=== PATIENT | male | born 1955 | race Caucasian/White ===

== ENCOUNTER → 2020-05-15 | Outpatient (REF) | payer MEDICARE, OTHER ==
[~2020-05-15] MED LIST: ALEV220T22 PO; AMLO1TAB24 PO
[2020-06-29 17:02] LABS: ALBUMIN 3.2 GM/DL (3.2-5.2); ALT/SGPT 40 U/L (12-78); BILIRUBIN,TOTAL 0.7 MG/DL (0.2-1.0); BLOOD UREA NITROGEN 6 MG/DL (7-18); CALCIUM LEVEL 9.2 MG/DL (8.8-10.2); CARBON DIOXIDE LEVEL 29 MEQ/L (21-32); CHLORIDE LEVEL 105 MEQ/L (98-107); CHOLESTEROL LEVEL 194 MG/DL (<200); CHOLESTEROL RISK RATIO 5.105 (<5); CREATININE FOR GFR 0.63 MG/DL (0.70-1.30); GLOMERULAR FILTRATION RATE > 60.0 (>49); GLUCOSE, FASTING 94 MG/DL (70-100); HDL CHOLESTEROL 38 MG/DL (>40); LDL CHOLESTEROL 133 MG/DL (<100); NON-HDL-C 156 MG/DL; POTASSIUM SERUM 4.4 MEQ/L (3.5-5.1); SODIUM LEVEL 136 MEQ/L (136-145); TOTAL PROTEIN 7.7 GM/DL (6.4-8.2); TRIGLYCERIDES LEVEL 113 MG/DL (<150)
== END ==
LOC: M SFHCCLAY 15:35
PROVIDERS: ATTEND Family Medicine
DX: R03.0 Elevated blood-pressure reading, without diagnosis of hypertension (principal); Z83.3 Family history of diabetes mellitus; Z13.220 Encounter for screening for lipoid disorders
CPT/HCPCS: 36415; 80053; 80061; 83036; G0463

== ENCOUNTER → 2020-05-22 | Outpatient (REF) | payer MEDICARE, OTHER ==
[2020-07-14 23:45] LABS: % LABILE ALKALINE PHOSPHATASE 61.6 %
== END ==
LOC: M SFHCCLAY 16:12
PROVIDERS: ATTEND Family Medicine
DX: R74.8 Abnormal levels of other serum enzymes (principal)

== ENCOUNTER → 2020-06-03 | Outpatient (REF) | payer MEDICARE, OTHER ==
[2020-06-03 22:45] LABS: % LABILE ALKALINE PHOSPHATASE 67.8 %
== END ==
LOC: M LABDRAWC 10:20
PROVIDERS: ATTEND Family Medicine
DX: R94.5 Abnormal results of liver function studies (principal)
CPT/HCPCS: 36415; 84078; G0463

== ENCOUNTER → 2020-07-03 | Outpatient (CLI) | payer MEDICARE, OTHER ==
[2020-07-03 12:31] LABS: HEMATOCRIT 44.2 % (42.0-52.0); HEMOGLOBIN 14.9 g/dl (13.5-17.5); MEAN CORPUSCULAR HEMOGLOBIN 36.2 pg (27.0-33.0); MEAN CORPUSCULAR HGB CONC 33.7 g/dl (32.0-36.5); MEAN CORPUSCULAR VOLUME 107.3 fl (80.0-96.0); PLATELET COUNT, AUTOMATED 150 10^3/uL (150-450); RED BLOOD COUNT 4.12 10^6/uL (4.30-6.10); WHITE BLOOD COUNT 7.8 10^3/uL (4.0-10.0)
[2020-07-03 12:34] LABS: BLOOD UREA NITROGEN 7 MG/DL (7-18); CALCIUM LEVEL 9.3 MG/DL (8.8-10.2); CARBON DIOXIDE LEVEL 26 MEQ/L (21-32); CHLORIDE LEVEL 107 MEQ/L (98-107); CREATININE FOR GFR 0.59 MG/DL (0.70-1.30); GLOMERULAR FILTRATION RATE > 60.0 (>49); GLUCOSE, FASTING 107 MG/DL (70-100); POTASSIUM SERUM 4.1 MEQ/L (3.5-5.1); SODIUM LEVEL 136 MEQ/L (136-145)
--- NOTE | 2020-07-11 13:41 | REP ---
CHEST X-RAY: 2-VIEWS HISTORY: Preop clearance; Z01.818. COMPARISON: No comparison chest x-ray. FINDINGS: There is minimal linear fibrosis in the left lung base. Lungs are otherwise well-inflated and clear. Heart is not enlarged. The aorta is calcific and slightly tortuous. There are mild degenerative changes in the thoracic spine. Pulmonary vasculature is not increased. IMPRESSION: No acute disease. MTDD
== END ==
LOC: M CLY 08:13
PROVIDERS: ATTEND Family Medicine
DX: Z01.818 Encounter for other preprocedural examination (principal); L72.3 Sebaceous cyst

== ENCOUNTER → 2020-07-26 | Outpatient (CLI) | payer MEDICARE, OTHER | LOC: M LABSMTC 08:57 | PROVIDERS: ATTEND Anesthesiology | DX: Z01.812 Encounter for preprocedural laboratory examination (principal); Z20.828 Contact with and (suspected) exposure to other viral communicable diseases | CPT/HCPCS: C9803; U0003 ==

== ENCOUNTER 2020-07-31 05:52 | Day surgery (SDC) | payer MEDICARE ==
[~2020-07-31] VITALS: Ht 170.2 cm; Wt 91.2 kg
[2020-07-31] MEDS ORDERED: LR 1,000 ML IV ONE (06:00)
[2020-07-31] MEDS ORDERED: ceFAZolin SOD 1 GM in D5W MINI-BAG PLUS 50 ML IV ONE (06:00)
[2020-07-31] MEDS ORDERED: dexameTHASONE 4 MG/ML 1ML VIAL (J1100 PER 1MG) As Ordered ONE (07:19)
[2020-07-31] MEDS ORDERED: propofoL 200 MG/20 ML VIAL As Ordered ONE (07:19)
[2020-07-31] MEDS ORDERED: MIDAZOLAM INJ 2MG/2ML VIAL (J2250 PER 1MG) As Ordered ONE (07:19)
[2020-07-31] MEDS ORDERED: KETOROLAC 60MG 2ML VIAL As Ordered ONE (07:19)
[2020-07-31] MEDS ORDERED: fentaNYL 100 MCG/2 ML INJECTION (J3010) As Ordered ONE (07:19)
[2020-07-31] MEDS ORDERED: LIDOCAINE 2% 100MG/5ML SDV (FOR ANES.) As Ordered ONE (07:19)
[2020-07-31] MEDS ORDERED: ONDANSETRON 4MG/2ML VIAL As Ordered ONE (07:19)
[2020-07-31] MEDS ORDERED: POVIDONE-IODINE 5% OPHTH PREP SOL 30ML As Ordered ONE (07:20)
[2020-07-31] MEDS ORDERED: LIDOCAINE 2% W/EPINEPHRINE 20ML VIAL **PRES FREE As Ordered ONE (07:48)
[2020-07-31] MEDS ORDERED: POLYSPORIN OPHTH OINT 3.5 GM As Ordered ONE (07:48)
--- NOTE | 2020-07-31 09:19 | POST-OPPD ---
Postoperative Procedure Note Date Of Procedure: Jul 31, 2020 PREOPERATIVE DIAGNOSIS: Right inferior eyelid malignant lesion, left forehead mass POSTOPERATIVE DIAGNOSIS: same FINDINGS: Right lower eyelid lesion 1.1x0.9cm, Left forehead mass round 2cm PROCEDURE: Excision left forehead mass and right lower eyelid malignant lesion. SURGEON: Dr Taylor ANESTHESIA: General SPECIMENS: Right lower eyelid lesion FS, suture at 12 O'clock, Left forehead mass ESTIMATED BLOOD LOSS: 2 cc REPLACED: none DRAINS: none COMPLICATIONS: none POSTOPERATIVE CONDITION: Stable [id number] SHELBY TAYLOR DO Jul 31, 2020 09:19
[2020-07-31] MEDS ORDERED: LR 1,000 ML IV SCH (10:00)
[2020-07-31] MEDS ORDERED: HYDROMORPHONE HCL 0.5 MG/ 0.5 ML SYRINGE (J1170 PER 1) IV PRN (10:00)
[2020-07-31] MEDS ORDERED: oxyCODONE 5MG TAB PO PRN (10:00)
[2020-07-31] MEDS ORDERED: fentaNYL 100 MCG/2 ML INJECTION (J3010) IV PRN (10:00)
[2020-07-31] MEDS ORDERED: ONDANSETRON 4MG/2ML VIAL IV PRN (10:00)
[2020-07-31 11:35] VITALS: BP 157/75
--- NOTE | 2020-08-04 08:19 | RO ---
DATE OF OPERATION: 07/31/2020 PREOPERATIVE DIAGNOSIS: Right inferior eyelid malignant lesion, left forehead mass. POSTOPERATIVE DIAGNOSIS: Right inferior eyelid malignant lesion, left forehead mass. PROCEDURE: Excision, left forehead mass and the right lower eyelid malignant lesion. ATTENDING PHYSICIAN: Dr. Sampson ANESTHESIA: General. SPECIMEN: Right lower eyelid lesion, frozen section, suture margin 12 o'clock. Similar forehead mass. BLOOD LOSS: 2 mL. REPLACEMENT: None. DRAINS: None. COMPLICATIONS: None. PROCEDURE DESCRIPTION: This is a 65-year-old male who presented to our office complaining of a slow-growing mass on his left forehead. It did drain periodically, and he had previously been diagnosed with cysts, and this was a similar mass. Also he has a slow-growing lesion, which is a tate color with verrucous formation medially on his right lower eyelid, more laterally, which is extending to the ciliary border and touching the cornea. Patient wishes to have both of those lesions removed. Risks, benefits, and alternatives were discussed with the patient in detail, and he ready to proceed. The day of surgery, he was marked in the holding unit. Informed consent confirmed. He was brought into the operating room and placed in supine position. Preoperative antibiotics were given. Sequentials placed on the lower calves. General anesthesia was induced. He was prepped and draped in the usual sterile fashion. We started the procedure by measuring the lesion on the right lower eyelid. It is 1.1 x 0.9 cm. It was extending to the edge of the eyelid from 11 to 2 o'clock, and also left forehead mass with a round lesion, 2 x 2 cm. We started with infiltrating the area with 2% lidocaine with epinephrine in both areas. After the local was taking effect, we started our procedure on the right lower eyelid. The excision of the lesion was done with 2 mm margins, and it was excised completely from the edge of the eyelid down in the hexagonal formation. The lesion was marked at 12 o'clock sutures, superior portion, and the ciliary border was marked with a 12 o'clock suture and sent for frozen section. Hemostasis was obtained using electrocautery. The tarsal plate was intact. A small portion of the tarsal plate was taken superiorly with the specimen. Then we turned our attention to the mass while we waited for the frozen section. A horizontal incision was carried out, and the cyst was identified with a thick wall and was carefully dissected off the adhesions, and it was removed in all entirety. The wound bed was irrigated with normal saline. Hemostasis obtained. Excess skin was measured and tailored off and resected. Closure was done in layers, the muscle layer with 4-0 Vicryl sutures, the skin with interrupted 5-0 Monocryl sutures, and dermis with 5-0 plain interrupted fascial sutures. After frozen came back with clear margins, we designed a local flap to reapproximate the lower eyelid. The edge of the lid was approximated primarily with interrupted 6-0 nylon sutures with a buried knot, and then the anterior portion of the eyelid with a small advancement flap to alleviate the deficit. Then it was sutured in place with interrupted 5-0 and 6-0 plain gut sutures. Bacitracin ointment was applied. Before we started working on the eyelid, we used ophthalmic bacitracin and corneal protector to protect the right eye. After closure was completed, patient was extubated and transferred to the recovery room in stable condition. TIMI
== END 2020-07-31 11:35 | disposition home or self-care (01) ==
LOC: M SDC 05:52
PROVIDERS: ATTEND Plastic Surgery Surgery of the Hand
DX: C44.1122 Basal cell carcinoma of skin of right lower eyelid, including canthus (principal); L72.0 Epidermal cyst; I10 Essential (primary) hypertension; Z79.899 Other long term (current) drug therapy; F17.218 Nicotine dependence, cigarettes, with other nicotine-induced disorders
CPT/HCPCS: 11442; 14060; 88305; 88331; J0690; J1100; J1885; J2250; J2405; J3010

== ENCOUNTER → 2021-01-15 | Outpatient (CLI) | payer MEDICARE ==
--- NOTE | 2021-01-15 14:52 | REP ---
INDICATION: RT LEG PAIN SWELLING ? DVT COMPARISON: None. TECHNIQUE: Real time compression and duplex Doppler interrogation of the right lower extremity deep venous system is performed. FINDINGS: The right common femoral, superficial femoral and popliteal veins are fully compressible with transducer pressure and demonstrate normal spontaneous and phasic flow, without evidence of deep venous thrombosis. IMPRESSION: No evidence of deep venous thrombosis of the right lower extremity femoral popliteal venous system. <Electronically signed by Du Blake > 01/15/21 [id number]
== END ==
LOC: M RAD 13:23
PROVIDERS: ATTEND Family Medicine
DX: M79.89 Other specified soft tissue disorders (principal)

== ENCOUNTER → 2021-05-20 | Outpatient (REF) | payer MEDICARE ==
[2021-05-20 16:08] LABS: BASO # 0.1 10^3/uL (0.0-0.2); BASO % 1.7 % (0.0-1.0); EOS # 0.5 10^3/uL (0.0-0.5); HEMOGLOBIN 15.5 g/dl (13.5-17.5); LYMPH # 2.7 10^3/uL (1.5-5.0); LYMPH % 35.3 % (24.0-44.0); MEAN CORPUSCULAR HEMOGLOBIN 36.5 pg (27.0-33.0); MEAN CORPUSCULAR HGB CONC 33.7 g/dl (32.0-36.5); MEAN CORPUSCULAR VOLUME 108.2 fl (80.0-96.0); MONO # 0.9 10^3/uL (0.0-0.8); MONO % 11.3 % (2.0-8.0); NEUTROPHILS # 3.4 10^3/uL (1.5-8.5); NEUTROPHILS % 44.3 % (36.0-66.0); PLATELET COUNT, AUTOMATED 169 10^3/uL (150-450); RED BLOOD COUNT 4.25 10^6/uL (4.30-6.10); WHITE BLOOD COUNT 7.6 10^3/uL (4.0-10.0)
[2021-05-20 16:26] LABS: ALT/SGPT 48 U/L (12-78); BILIRUBIN,TOTAL 0.7 MG/DL (0.2-1.0); BLOOD UREA NITROGEN 7 MG/DL (7-18); CALCIUM LEVEL 9.6 MG/DL (8.8-10.2); CARBON DIOXIDE LEVEL 29 MEQ/L (21-32); CHLORIDE LEVEL 103 MEQ/L (98-107); CREATININE FOR GFR 0.49 MG/DL (0.70-1.30); GLOMERULAR FILTRATION RATE > 60.0 (>49); GLUCOSE, FASTING 117 MG/DL (70-100); POTASSIUM SERUM 4.2 MEQ/L (3.5-5.1); SODIUM LEVEL 137 MEQ/L (136-145)
[2021-05-20 16:27] LABS: ALBUMIN 3.1 GM/DL (3.2-5.2); CHOLESTEROL LEVEL 210 MG/DL (<200); CHOLESTEROL RISK RATIO 4.565 (<5); HDL CHOLESTEROL 46 MG/DL (>40); LDL CHOLESTEROL 137 MG/DL (<100); NON-HDL-C 164 MG/DL; TOTAL 25(OH) VITAMIN D 13.2 NG/ML (30.0-100.0); TOTAL PROTEIN 7.2 GM/DL (6.4-8.2); TRIGLYCERIDES LEVEL 134 MG/DL (<150); VITAMIN B12 LEVEL 623 PG/ML
[2021-05-20 16:47] LABS: APPEARANCE, URINE CLEAR (CLEAR); BACTERIA, URINE AUTO NEGATIVE (NEGATIVE); BILIRUBIN, URINE AUTO NEGATIVE (NEGATIVE); BLOOD, URINE BLOOD NEGATIVE (NEGATIVE); COLOR, URINE AMBER (YELLOW); GLUCOSE, URINE (UA) AUTO NEGATIVE (NEGATIVE); KETONE, URINE AUTO NEGATIVE (NEGATIVE); LEUKOCYTE ESTERASE, URINE AUTO NEGATIVE (NEGATIVE); MUCUS, URINE SMALL (NEGATIVE); NITRITE, URINE AUTO NEGATIVE (NEGATIVE); PROTEIN, URINE AUTO NEGATIVE (NEGATIVE); RBC, URINE AUTO 0 /HPF (0-3); SPECIFIC GRAVITY URINE AUTO 1.016 (1.002-1.035); SQUAMOUS EPITHELIAL CELL UR AU 1 /HPF (0-6); WBC, URINE AUTO 0 /HPF (0-3)
[2021-05-23 20:07] LABS: Lyme Disease IgG Ab 18 kDa Ban Absent (.); Lyme Disease IgG Ab 23 kDa Ban Absent (.); Lyme Disease IgG Ab 28 kDa Ban Absent (.); Lyme Disease IgG Ab 30 kDa Ban Absent (.); Lyme Disease IgG Ab 39 kDa Ban Absent (.); Lyme Disease IgG Ab 41 kDa Ban Absent (.); Lyme Disease IgG Ab 45 kDa Ban Absent (.); Lyme Disease IgG Ab 58 kDa Ban Present (.); Lyme Disease IgG Ab 66 kDa Ban Absent (.); Lyme Disease IgG Ab 93 kDa Ban Absent (.); Lyme Disease IgG West Blot Int Negative (.); Lyme Disease IgG/IgM Antibodie <0.91 ISR (0.00-0.90); Lyme Disease IgM Ab 23 kDa Ban Absent (.); Lyme Disease IgM Ab 39 kDa Ban Present (.); Lyme Disease IgM Ab 41 kDa Ban Present (.); Lyme Disease IgM Ab Quantitati 0.94 index (0.00-0.79); Lyme Disease IgM West Blot Int Positive (.)
== END ==
LOC: M SFHCCAPE 07:34
PROVIDERS: ATTEND Physician Assistant
DX: I11.9 Hypertensive heart disease without heart failure (principal); R20.2 Paresthesia of skin; M25.50 Pain in unspecified joint; Z79.899 Other long term (current) drug therapy

== ENCOUNTER → 2021-06-24 | Outpatient (CLI) | payer MEDICARE ==
--- NOTE | 2021-06-24 08:26 | REP ---
INDICATION: SCREENING FOR LUNG CANCER- PT HAS US FIRST. COMPARISON: None. TECHNIQUE: Axial noncontrast images from the thoracic inlet to the upper abdomen using low-dose lung screening technique (LDCT). As per the protocol only lung window images were sent to the read station for interpretation FINDINGS: There is evidence of biapical pleuroparenchymal scarring. There is a 5 mm size nodule in the right upper lobe. Asymmetric and curvilinear densities are seen 1 in the right middle lobe and 1 in the inferior lingula. Grossly, the mediastinum and pulmonary killian are unremarkable. Grossly, the imaged upper abdomen and imaged osseous structures are unremarkable. IMPRESSION: 1. There is a 5 mm size nodule in the right upper lobe. According to the revised Fleischner society criteria this represents a category 2 lesion for which a 1 year follow-up CT is recommended. 2. Chronic lung field changes as described above. The lingular and right middle lobe densities likely represent fibrotic and/or subsegmental atelectatic changes. <Electronically signed by Primitivo Hu > 06/24/21 [id number]
--- NOTE | 2021-06-24 08:29 | REP ---
INDICATION: ALCOHOL ABUSE, ELEVATED ALKALINE PHOSPHATASE LEVELS. COMPARISON: None. TECHNIQUE: Real-time sonographic evaluation of ABDOMEN performed. FINDINGS: The gallbladder demonstrates no evidence of intraluminal sludge or calculi, wall thickening or pericholecystic fluid. There is no intrahepatic or extrahepatic biliary dilatation, common bile duct measures 6 mm in maximum diameter. The liver is enlarged with a length of 23.5 cm. Echotexture is diffusely heterogeneous with no gross mass. Main portal vein measures 14 mm which is slightly dilated. Pancreas is not visualized due to overlying bowel gas. Spleen is enlarged, 13.3 x 13.1 x 7.8 cm, splenic index 1359. There is no evidence of hydronephrosis, cyst, mass, or calculus in either kidney. The right kidney measures 13.7 x 6.0 x 4.4 cm. Left renal dimensions are 12.0 x 6.4 x 5.0 cm. The abdominal aorta is normal in caliber with no aneurysm. There is mild atherosclerotic plaquing. No free fluid is seen. IMPRESSION: Hepatomegaly with heterogeneous echotexture. No gross liver mass. Slightly dilated main portal vein may indicate some degree of portal hypertension. Splenomegaly. <Electronically signed by Du Blake > 06/24/21 [id number]
== END ==
LOC: M RAD 07:11
PROVIDERS: ATTEND Physician Assistant
DX: Z12.2 Encounter for screening for malignant neoplasm of respiratory organs (principal); F10.10 Alcohol abuse, uncomplicated; R74.8 Abnormal levels of other serum enzymes; R91.8 Other nonspecific abnormal finding of lung field; R16.2 Hepatomegaly with splenomegaly, not elsewhere classified; F17.210 Nicotine dependence, cigarettes, uncomplicated

== ENCOUNTER → 2021-06-30 | Outpatient (REF) | payer MEDICARE ==
[2021-06-30 16:46] LABS: ALBUMIN 2.8 GM/DL (3.2-5.2); ALT/SGPT 48 U/L (12-78); BILIRUBIN,TOTAL 0.9 MG/DL (0.2-1.0); BLOOD UREA NITROGEN 8 MG/DL (7-18); CALCIUM LEVEL 9.1 MG/DL (8.8-10.2); CARBON DIOXIDE LEVEL 28 MEQ/L (21-32); CHLORIDE LEVEL 95 MEQ/L (98-107); CREATININE FOR GFR 0.49 MG/DL (0.70-1.30); FREE T4 1.29 NG/DL (0.76-1.46); GLOMERULAR FILTRATION RATE > 60.0 (>49); GLUCOSE, FASTING 104 MG/DL (70-100); POTASSIUM SERUM 3.8 MEQ/L (3.5-5.1); SODIUM LEVEL 130 MEQ/L (136-145); TOTAL 25(OH) VITAMIN D 18.6 NG/ML (30.0-100.0); TOTAL PROTEIN 6.9 GM/DL (6.4-8.2)
[2021-06-30 16:48] LABS: BASO # 0.1 10^3/uL (0.0-0.2); BASO % 1.5 % (0.0-1.0); EOS # 0.3 10^3/uL (0.0-0.5); EOS % 4.9 % (0.0-3.0); HEMATOCRIT 40.4 % (42.0-52.0); HEMOGLOBIN 14.4 g/dl (13.5-17.5); LYMPH # 1.9 10^3/uL (1.5-5.0); LYMPH % 28.1 % (24.0-44.0); MEAN CORPUSCULAR HEMOGLOBIN 36.9 pg (27.0-33.0); MEAN CORPUSCULAR HGB CONC 35.6 g/dl (32.0-36.5); MEAN CORPUSCULAR VOLUME 103.6 fl (80.0-96.0); MONO # 0.6 10^3/uL (0.0-0.8); MONO % 9.3 % (2.0-8.0); NEUTROPHILS # 3.7 10^3/uL (1.5-8.5); NEUTROPHILS % 55.6 % (36.0-66.0); PLATELET COUNT, AUTOMATED 174 10^3/uL (150-450); WHITE BLOOD COUNT 6.7 10^3/uL (4.0-10.0)
== END ==
LOC: M SFHCCAPE 07:23
PROVIDERS: ATTEND Physician Assistant
DX: I11.9 Hypertensive heart disease without heart failure (principal); R74.8 Abnormal levels of other serum enzymes; Z79.899 Other long term (current) drug therapy

== ENCOUNTER → 2021-08-18 | Outpatient (REF) | payer MEDICARE ==
[2021-08-18 16:18] LABS: BASO # 0.1 10^3/uL (0.0-0.2); BASO % 1.2 % (0.0-1.0); EOS # 0.5 10^3/uL (0.0-0.5); EOS % 6.2 % (0.0-3.0); HEMATOCRIT 34.4 % (42.0-52.0); HEMOGLOBIN 12.2 g/dl (13.5-17.5); LYMPH # 1.9 10^3/uL (1.5-5.0); LYMPH % 24.5 % (24.0-44.0); MEAN CORPUSCULAR HEMOGLOBIN 37.7 pg (27.0-33.0); MEAN CORPUSCULAR HGB CONC 35.5 g/dl (32.0-36.5); MEAN CORPUSCULAR VOLUME 106.2 fl (80.0-96.0); MONO # 0.8 10^3/uL (0.0-0.8); MONO % 10.1 % (2.0-8.0); NEUTROPHILS # 4.3 10^3/uL (1.5-8.5); NEUTROPHILS % 57.6 % (36.0-66.0); PLATELET COUNT, AUTOMATED 189 10^3/uL (150-450); RED BLOOD COUNT 3.24 10^6/uL (4.30-6.10); WHITE BLOOD COUNT 7.5 10^3/uL (4.0-10.0)
[2021-08-18 16:48] LABS: ALT/SGPT 39 U/L (12-78); BILIRUBIN,TOTAL 1.1 MG/DL (0.2-1.0); BLOOD UREA NITROGEN 10 MG/DL (7-18); CALCIUM LEVEL 9.2 MG/DL (8.8-10.2); CARBON DIOXIDE LEVEL 27 MEQ/L (21-32); CHLORIDE LEVEL 97 MEQ/L (98-107); CREATININE FOR GFR 0.63 MG/DL (0.70-1.30); FREE T4 1.33 NG/DL (0.76-1.46); GLOMERULAR FILTRATION RATE > 60.0 (>49); GLUCOSE, FASTING 115 MG/DL (70-100); POTASSIUM SERUM 4.2 MEQ/L (3.5-5.1); RHEUMATOID FACTOR QUANT < 10.0 IU/ML (<15.0); SODIUM LEVEL 131 MEQ/L (136-145); TOTAL PROTEIN 6.9 GM/DL (6.4-8.2)
[2021-08-21 10:47] LABS: ALBUMIN 3.53 GM/DL (3.29-5.55); ALBUMIN % 51.1 % (55.8-66.1); ALPHA-1-GLOBULIN % 4.2 % (2.9-4.9); ALPHA-1-GLOBULINS 0.29 GM/DL (0.17-0.41); ALPHA-2-GLOBULINS 0.67 GM/DL (0.42-0.99); ALPHA-2-GLOBULINS % 9.7 % (7.1-11.8); BETA-1-GLOBULINS 0.39 GM/DL (0.28-0.60); BETA-1-GLOBULINS % 5.6 % (4.7-7.2); BETA-2-GLOBULINS 0.59 GM/DL (0.19-0.55); BETA-2-GLOBULINS % 8.5 % (3.2-6.5); GAMMA GLOBULIN % 20.9 % (11.1-18.8); GAMMA GLOBULINS 1.44 GM/DL (0.65-1.58)
[2021-08-27 00:08] LABS: ANA (HEP2) Positive (.); CYCLIC CITRULLINATED PEPTIDE 22 units (0-19); VITAMIN B1 LEVEL WHOLE BLOOD 79.3 nmol/L (66.5-200.0); VITAMIN B6,PYRIDOXAL PHOSPHATE 7.1 ug/L (5.3-46.7)
== END ==
LOC: M SFHCCAPE 08:17
PROVIDERS: ATTEND Physician Assistant
DX: E03.9 Hypothyroidism, unspecified (principal); E55.9 Vitamin D deficiency, unspecified; R20.2 Paresthesia of skin; M25.50 Pain in unspecified joint; Z12.5 Encounter for screening for malignant neoplasm of prostate
CPT/HCPCS: 36415; 80053; 82306; 84165; 84166; 84207; 84425; 84439; 84443; 85025; 86038; 86200; 86335; 86431; 86780; G0103; G0463

== ENCOUNTER → 2021-08-20 | Outpatient (REF) | payer MEDICARE ==
[2021-08-26 23:09] LABS: VITAMIN E(ALPHA TOCOPHEROL) 4.3 mg/L (9.0-29.0); VITAMIN E(GAMMA TOCOPHEROL) 1.8 mg/L (0.5-4.9)
== END ==
LOC: M SFHCCAPE 07:26
PROVIDERS: ATTEND Physician Assistant
DX: R20.2 Paresthesia of skin (principal); M25.50 Pain in unspecified joint

== ENCOUNTER → 2021-08-20 | Outpatient (CLI) | payer MEDICARE | LOC: M CLY 13:07 | PROVIDERS: ATTEND Physician Assistant | DX: M43.16 Spondylolisthesis, lumbar region (principal); M51.36 Other intervertebral disc degeneration, lumbar region; M16.11 Unilateral primary osteoarthritis, right hip; R20.2 Paresthesia of skin; M54.42 Lumbago with sciatica, left side; M54.41 Lumbago with sciatica, right side; G89.29 Other chronic pain ==

== ENCOUNTER → 2021-11-17 | Outpatient (REF) | payer MEDICARE ==
[2021-11-17 16:25] LABS: BASO # 0.1 10^3/uL (0.0-0.2); BASO % 1.5 % (0.0-1.0); EOS # 0.4 10^3/uL (0.0-0.5); EOS % 4.9 % (0.0-3.0); HEMATOCRIT 36.7 % (42.0-52.0); HEMOGLOBIN 12.5 g/dl (13.5-17.5); LYMPH # 1.7 10^3/uL (1.5-5.0); LYMPH % 23.8 % (24.0-44.0); MEAN CORPUSCULAR HEMOGLOBIN 36.1 pg (27.0-33.0); MEAN CORPUSCULAR HGB CONC 34.1 g/dl (32.0-36.5); MEAN CORPUSCULAR VOLUME 106.1 fl (80.0-96.0); MONO # 0.8 10^3/uL (0.0-0.8); MONO % 11.4 % (2.0-8.0); NEUTROPHILS # 4.2 10^3/uL (1.5-8.5); NEUTROPHILS % 58.1 % (36.0-66.0); PLATELET COUNT, AUTOMATED 224 10^3/uL (150-450); RED BLOOD COUNT 3.46 10^6/uL (4.30-6.10); WHITE BLOOD COUNT 7.3 10^3/uL (4.0-10.0)
[2021-11-17 16:48] LABS: ALBUMIN 3.2 GM/DL (3.2-5.2); ALT/SGPT 34 U/L (12-78); BILIRUBIN,TOTAL 0.8 MG/DL (0.2-1.0); BLOOD UREA NITROGEN 13 MG/DL (7-18); C REACTIVE PROTEIN QUANTITATIV 1.57 MG/DL (0.00-0.30); CALCIUM LEVEL 9.5 MG/DL (8.8-10.2); CARBON DIOXIDE LEVEL 24 MEQ/L (21-32); CHLORIDE LEVEL 102 MEQ/L (98-107); CREATININE FOR GFR 0.64 MG/DL (0.70-1.30); GLOMERULAR FILTRATION RATE > 60.0 (>49); GLUCOSE, FASTING 90 MG/DL (70-100); POTASSIUM SERUM 4.1 MEQ/L (3.5-5.1); RHEUMATOID FACTOR QUANT < 10.0 IU/ML (<15.0); SODIUM LEVEL 133 MEQ/L (136-145); TOTAL PROTEIN 6.9 GM/DL (6.4-8.2)
[2021-11-17 17:56] LABS: ERYTHROCYTE SEDIMENTATION RATE 49 mm/hr (0-20)
[2021-11-20 23:08] LABS: ANA (HEP2) Positive (.); CYCLIC CITRULLINATED PEPTIDE 26 units (0-19)
== END ==
LOC: M SFHCCAPE 08:01
PROVIDERS: ATTEND Physician Assistant
DX: I11.9 Hypertensive heart disease without heart failure (principal); M25.50 Pain in unspecified joint; D75.89 Other specified diseases of blood and blood-forming organs

== ENCOUNTER → 2021-12-09 | Outpatient (CLI) | payer MEDICARE | LOC: M RAD 14:12 | PROVIDERS: ATTEND Physician Assistant | DX: I70.201 Unspecified atherosclerosis of native arteries of extremities, right leg (principal); M54.42 Lumbago with sciatica, left side; Z79.899 Other long term (current) drug therapy ==

== ENCOUNTER → 2022-04-20 | Outpatient (REF) | payer MEDICARE ==
[2022-04-20 16:38] LABS: BASO # 0.1 10^3/uL (0.0-0.2); BASO % 1.4 % (0.0-1.0); EOS # 0.3 10^3/uL (0.0-0.5); EOS % 4.6 % (0.0-3.0); HEMATOCRIT 37.8 % (42.0-52.0); HEMOGLOBIN 13.2 g/dl (13.5-17.5); LYMPH # 1.8 10^3/uL (1.5-5.0); LYMPH % 31.1 % (24.0-44.0); MEAN CORPUSCULAR HEMOGLOBIN 36.5 pg (27.0-33.0); MEAN CORPUSCULAR HGB CONC 34.9 g/dl (32.0-36.5); MEAN CORPUSCULAR VOLUME 104.4 fl (80.0-96.0); MONO # 0.6 10^3/uL (0.0-0.8); MONO % 10.1 % (2.0-8.0); NEUTROPHILS % 52.4 % (36.0-66.0); PLATELET COUNT, AUTOMATED 169 10^3/uL (150-450); RED BLOOD COUNT 3.62 10^6/uL (4.30-6.10); WHITE BLOOD COUNT 5.7 10^3/uL (4.0-10.0)
[2022-04-20 19:45] LABS: ALBUMIN 3.1 GM/DL (3.2-5.2); ALT/SGPT 44 U/L (12-78); BILIRUBIN,TOTAL 0.9 MG/DL (0.2-1.0); BLOOD UREA NITROGEN 7 MG/DL (7-18); CALCIUM LEVEL 9.2 MG/DL (8.8-10.2); CARBON DIOXIDE LEVEL 26 MEQ/L (21-32); CHLORIDE LEVEL 99 MEQ/L (98-107); CHOLESTEROL LEVEL 146 MG/DL (<200); CHOLESTEROL RISK RATIO 2.703 (<5); CREATININE FOR GFR 0.65 MG/DL (0.70-1.30); FREE T4 1.35 NG/DL (0.76-1.46); GLOMERULAR FILTRATION RATE > 60.0 (>49); GLUCOSE, FASTING 107 MG/DL (70-100); HDL CHOLESTEROL 54 MG/DL (>40); LDL CHOLESTEROL 75 MG/DL (<100); NON-HDL-C 92 MG/DL; POTASSIUM SERUM 4.2 MEQ/L (3.5-5.1); SODIUM LEVEL 130 MEQ/L (136-145); TOTAL PROTEIN 6.9 GM/DL (6.4-8.2); TRIGLYCERIDES LEVEL 85 MG/DL (<150)
[2022-04-20 20:11] LABS: TOTAL 25(OH) VITAMIN D 56.9 NG/ML (30.0-100.0)
[2022-04-22 09:42] LABS: ALBUMIN % 53.2 % (55.8-66.1); ALPHA-1-GLOBULIN % 3.9 % (2.9-4.9); ALPHA-2-GLOBULINS % 9.9 % (7.1-11.8)
[2022-04-22 09:43] LABS: ALBUMIN 3.67 GM/DL (3.29-5.55); ALPHA-1-GLOBULINS 0.27 GM/DL (0.17-0.41); ALPHA-2-GLOBULINS 0.68 GM/DL (0.42-0.99); BETA-1-GLOBULINS % 5.8 % (4.7-7.2); BETA-2-GLOBULINS 0.54 GM/DL (0.19-0.55); BETA-2-GLOBULINS % 7.8 % (3.2-6.5); GAMMA GLOBULIN % 19.4 % (11.1-18.8); GAMMA GLOBULINS 1.34 GM/DL (0.65-1.58)
== END ==
LOC: M SFHCCAPE 07:17
PROVIDERS: ATTEND Physician Assistant
DX: R77.8 Other specified abnormalities of plasma proteins (principal); E55.9 Vitamin D deficiency, unspecified; E03.9 Hypothyroidism, unspecified; E56.0 Deficiency of vitamin E

== ENCOUNTER → 2022-04-21 | Outpatient (REF) | payer MEDICARE ==
[2022-04-21 16:20] LABS: C REACTIVE PROTEIN QUANTITATIV 0.58 MG/DL (0.00-0.30); RHEUMATOID FACTOR QUANT < 10.0 IU/ML (<15.0)
[2022-04-24 01:07] LABS: ANA (HEP2) Negative (.); CYCLIC CITRULLINATED PEPTIDE 27 units (0-19)
[2022-04-30 17:11] LABS: VITAMIN E(GAMMA TOCOPHEROL) 1.5 mg/L (0.5-4.9)
== END ==
LOC: M SFHCCAPE 10:43
PROVIDERS: ATTEND Physician Assistant
DX: M25.50 Pain in unspecified joint (principal)

== ENCOUNTER → 2022-07-08 | Outpatient (CLI) | payer MEDICARE | LOC: M RAD 08:22 | PROVIDERS: ATTEND Physician Assistant | DX: Z12.2 Encounter for screening for malignant neoplasm of respiratory organs (principal); F17.210 Nicotine dependence, cigarettes, uncomplicated; R91.1 Solitary pulmonary nodule ==

== ENCOUNTER → 2022-12-16 | Outpatient (REF) | payer MEDICARE ==
[2022-12-16 18:08] LABS: BASO # 0.1 10^3/uL (0.0-0.2); BASO % 1.6 % (0.0-1.0); EOS # 0.6 10^3/uL (0.0-0.5); EOS % 8.2 % (0.0-3.0); HEMATOCRIT 38.6 % (42.0-52.0); HEMOGLOBIN 12.9 g/dl (13.5-17.5); LYMPH % 28.5 % (24.0-44.0); MEAN CORPUSCULAR HEMOGLOBIN 36.1 pg (27.0-33.0); MEAN CORPUSCULAR HGB CONC 33.4 g/dl (32.0-36.5); MEAN CORPUSCULAR VOLUME 108.1 fl (80.0-96.0); MONO # 0.7 10^3/uL (0.0-0.8); MONO % 10.5 % (2.0-8.0); NEUTROPHILS # 3.6 10^3/uL (1.5-8.5); NEUTROPHILS % 50.8 % (36.0-66.0); PLATELET COUNT, AUTOMATED 194 10^3/uL (150-450); RED BLOOD COUNT 3.57 10^6/uL (4.30-6.10); WHITE BLOOD COUNT 7.1 10^3/uL (4.0-10.0)
[2022-12-16 18:41] LABS: ALBUMIN 3.2 G/DL (3.2-5.2); ALKALINE PHOSPHATASE 117 U/L (46-116); ALT/SGPT 26 U/L (7.0-40); AST/SGOT 31 U/L (<34); BILIRUBIN,TOTAL 0.7 MG/DL (0.3-1.2); BLOOD UREA NITROGEN 12 MG/DL (9-23); CALCIUM LEVEL 9.7 MG/DL (8.3-10.6); CARBON DIOXIDE LEVEL 27 MMOL/L (20-31); CHLORIDE LEVEL 102 MMOL/L (98-107); CHOLESTEROL LEVEL 167 MG/DL (<200); CHOLESTEROL RISK RATIO 3.47 (<5); CREATININE FOR GFR 0.64 MG/DL (0.70-1.30); GLOMERULAR FILTRATION RATE > 60.0 (>49); GLUCOSE, FASTING 107 MG/DL (74-106); LDL CHOLESTEROL 102.4 MG/DL (<100); POTASSIUM SERUM 4.1 MMOL/L (3.5-5.1); SODIUM LEVEL 135 MMOL/L (136-145); THYROID STIMULATING HORMONE 3.543 uIU/ML (0.55-4.78); TOTAL PROTEIN 6.5 G/DL (5.7-8.2); TRIGLYCERIDES LEVEL 83 MG/DL (<150)
[2022-12-16 18:42] LABS: FOLATE 10.8 NG/ML (>5.4); TOTAL 25(OH) VITAMIN D 75.7 NG/ML (20.0-100.0)
[2022-12-16 18:43] LABS: VITAMIN B12 LEVEL 230 PG/ML (211-911)
[2022-12-28 09:08] LABS: HOMOCYST(E)INE SERUM 19.3 umol/L (0.0-17.2); Methylmalonic Acid 950 nmol/L (0-378); VITAMIN E(ALPHA TOCOPHEROL) 6.3 mg/L (9.0-29.0); VITAMIN E(GAMMA TOCOPHEROL) 1.2 mg/L (0.5-4.9)
== END ==
LOC: M SFHCCAPE 07:10
PROVIDERS: ATTEND Physician Assistant
DX: I11.9 Hypertensive heart disease without heart failure (principal); E03.9 Hypothyroidism, unspecified; E55.9 Vitamin D deficiency, unspecified; M48.062 Spinal stenosis, lumbar region with neurogenic claudication; D75.89 Other specified diseases of blood and blood-forming organs; I73.9 Peripheral vascular disease, unspecified; E56.0 Deficiency of vitamin E; Z79.899 Other long term (current) drug therapy

== ENCOUNTER → 2023-03-31 | Outpatient (REF) | payer MEDICARE ==
[2023-03-31 18:24] LABS: ALBUMIN 3.1 G/DL (3.2-5.2); ALKALINE PHOSPHATASE 132 U/L (46-116); ALT/SGPT 22 U/L (7.0-40); AST/SGOT 51 U/L (<34); BLOOD UREA NITROGEN 11 MG/DL (9-23); CALCIUM LEVEL 9.2 MG/DL (8.3-10.6); CARBON DIOXIDE LEVEL 24 MMOL/L (20-31); CHLORIDE LEVEL 100 MMOL/L (98-107); CHOLESTEROL LEVEL 161 MG/DL (<200); CHOLESTEROL RISK RATIO 3.16 (<5); CREATININE FOR GFR 0.65 MG/DL (0.70-1.30); GLOMERULAR FILTRATION RATE > 60.0 (>49); GLUCOSE, FASTING 107 MG/DL (74-106); HDL CHOLESTEROL 50.9 MG/DL (>40); LDL CHOLESTEROL 93.3 MG/DL (<100); NON-HDL-C 110.1 MG/DL; POTASSIUM SERUM 4.2 MMOL/L (3.5-5.1); SODIUM LEVEL 130 MMOL/L (136-145); TOTAL PROTEIN 6.4 G/DL (5.7-8.2); TRIGLYCERIDES LEVEL 84 MG/DL (<150)
[2023-03-31 18:31] LABS: BASO # 0.1 10^3/uL (0.0-0.2); BASO % 1.4 % (0.0-1.0); EOS # 0.4 10^3/uL (0.0-0.5); EOS % 5.3 % (0.0-3.0); HEMATOCRIT 43.3 % (42.0-52.0); HEMOGLOBIN 14.8 g/dl (13.5-17.5); LYMPH % 24.8 % (24.0-44.0); MEAN CORPUSCULAR HEMOGLOBIN 36.1 pg (27.0-33.0); MEAN CORPUSCULAR HGB CONC 34.2 g/dl (32.0-36.5); MEAN CORPUSCULAR VOLUME 105.6 fl (80.0-96.0); MONO % 12.6 % (2.0-8.0); NEUTROPHILS # 4.5 10^3/uL (1.5-8.5); PLATELET COUNT, AUTOMATED 189 10^3/uL (150-450); WHITE BLOOD COUNT 8.1 10^3/uL (4.0-10.0)
== END ==
LOC: M SFHCCAPE 07:39
PROVIDERS: ATTEND Physician Assistant
DX: F10.10 Alcohol abuse, uncomplicated (principal); I73.9 Peripheral vascular disease, unspecified; E53.8 Deficiency of other specified B group vitamins; Z79.899 Other long term (current) drug therapy

== ENCOUNTER → 2023-07-11 | Outpatient (CLI) | payer MEDICARE | LOC: M RAD 09:42 | PROVIDERS: ATTEND Physician Assistant | DX: Z12.2 Encounter for screening for malignant neoplasm of respiratory organs (principal); Z87.891 Personal history of nicotine dependence ==

== ENCOUNTER → 2023-10-04 | Outpatient (REF) | payer MEDICARE ==
[2023-10-04 17:44] LABS: BASO # 0.1 10^3/uL (0.0-0.2); BASO % 1.4 % (0.0-1.0); EOS # 0.5 10^3/uL (0.0-0.5); HEMATOCRIT 40.1 % (42.0-52.0); HEMOGLOBIN 13.7 g/dl (13.5-17.5); LYMPH # 1.9 10^3/uL (1.5-5.0); LYMPH % 27.8 % (24.0-44.0); MEAN CORPUSCULAR HEMOGLOBIN 36.8 pg (27.0-33.0); MEAN CORPUSCULAR HGB CONC 34.2 g/dl (32.0-36.5); MEAN CORPUSCULAR VOLUME 107.8 fl (80.0-96.0); MONO # 0.7 10^3/uL (0.0-0.8); NEUTROPHILS # 3.4 10^3/uL (1.5-8.5); NEUTROPHILS % 51.3 % (36.0-66.0); PLATELET COUNT, AUTOMATED 182 10^3/uL (150-450); RED BLOOD COUNT 3.72 10^6/uL (4.30-6.10); WHITE BLOOD COUNT 6.7 10^3/uL (4.0-10.0)
[2023-10-04 18:07] LABS: ALKALINE PHOSPHATASE 121 U/L (46-116); ALT/SGPT 21 U/L (7.0-40); AST/SGOT 31 U/L (<34); BLOOD UREA NITROGEN 13 MG/DL (9-23); CALCIUM LEVEL 9.8 MG/DL (8.3-10.6); CARBON DIOXIDE LEVEL 27 MMOL/L (20-31); CHLORIDE LEVEL 101 MMOL/L (98-107); CREATININE FOR GFR 0.74 MG/DL (0.70-1.30); FOLATE 7.1 NG/ML (>5.4); FREE T4 1.06 NG/DL (0.89-1.76); GLOMERULAR FILTRATION RATE > 60.0 (>49); GLUCOSE, FASTING 100 MG/DL (74-106); POTASSIUM SERUM 3.9 MMOL/L (3.5-5.1); PSA SCREENING 0.42 NG/ML (< 4.00); SODIUM LEVEL 133 MMOL/L (136-145); THYROID STIMULATING HORMONE 2.982 uIU/ML (0.55-4.78); TOTAL PROTEIN 6.3 G/DL (5.7-8.2); VITAMIN B12 LEVEL 251 PG/ML (211-911)
== END ==
LOC: M SFHCCAPE 08:14
PROVIDERS: ATTEND Physician Assistant Medical
DX: I11.9 Hypertensive heart disease without heart failure (principal); Z12.5 Encounter for screening for malignant neoplasm of prostate; F10.10 Alcohol abuse, uncomplicated; E03.9 Hypothyroidism, unspecified
CPT/HCPCS: 80053; 82607; 82746; 84439; 84443; 85025; G0103

== ENCOUNTER → 2024-04-03 | Outpatient (REF) | payer MEDICARE ==
[2024-04-03 17:56] LABS: BASO # 0.1 10^3/uL (0.0-0.2); BASO % 1.4 % (0.0-1.0); EOS # 0.4 10^3/uL (0.0-0.5); EOS % 5.6 % (0.0-3.0); HEMATOCRIT 37.9 % (42.0-52.0); HEMOGLOBIN 12.8 g/dl (13.5-17.5); LYMPH # 1.5 10^3/uL (1.5-5.0); LYMPH % 23.2 % (24.0-44.0); MEAN CORPUSCULAR HEMOGLOBIN 35.6 pg (27.0-33.0); MEAN CORPUSCULAR HGB CONC 33.8 g/dl (32.0-36.5); MEAN CORPUSCULAR VOLUME 105.3 fl (80.0-96.0); MONO # 0.7 10^3/uL (0.0-0.8); MONO % 10.2 % (2.0-8.0); NEUTROPHILS # 3.8 10^3/uL (1.5-8.5); PLATELET COUNT, AUTOMATED 181 10^3/uL (150-450); WHITE BLOOD COUNT 6.4 10^3/uL (4.0-10.0)
[2024-04-03 18:07] LABS: ALBUMIN 2.9 G/DL (3.2-5.2); ALKALINE PHOSPHATASE 123 U/L (46-116); ALT/SGPT 25 U/L (7.0-40); AST/SGOT 30 U/L (<34); BILIRUBIN,TOTAL 0.6 MG/DL (0.3-1.2); BLOOD UREA NITROGEN 14 MG/DL (9-23); CALCIUM LEVEL 9.9 MG/DL (8.3-10.6); CARBON DIOXIDE LEVEL 26 MMOL/L (20-31); CHLORIDE LEVEL 104 MMOL/L (98-107); CHOLESTEROL LEVEL 128 MG/DL (<200); CHOLESTEROL RISK RATIO 2.19 (<5); CREATININE FOR GFR 0.83 MG/DL (0.70-1.30); GLOMERULAR FILTRATION RATE > 60.0 (>49); GLUCOSE, FASTING 100 MG/DL (74-106); HDL CHOLESTEROL 58.4 MG/DL (>40); LDL CHOLESTEROL 56.8 MG/DL (<100); NON-HDL-C 69.6 MG/DL; POTASSIUM SERUM 4.5 MMOL/L (3.5-5.1); SODIUM LEVEL 131 MMOL/L (136-145); TOTAL PROTEIN 6.2 G/DL (5.7-8.2); TRIGLYCERIDES LEVEL 64 MG/DL (<150)
[2024-04-03 18:08] LABS: FOLATE 5.9 NG/ML (>5.4); FREE T4 0.95 NG/DL (0.89-1.76); THYROID STIMULATING HORMONE 3.023 uIU/ML (0.55-4.78)
[2024-04-03 18:09] LABS: TOTAL 25(OH) VITAMIN D 103.1 NG/ML (20.0-100.0); VITAMIN B12 LEVEL 218 PG/ML (211-911)
== END ==
LOC: M SFHCCAPE 08:13
PROVIDERS: ATTEND Physician Assistant Medical
DX: E03.9 Hypothyroidism, unspecified (principal); D75.89 Other specified diseases of blood and blood-forming organs; E55.9 Vitamin D deficiency, unspecified; F10.10 Alcohol abuse, uncomplicated; I11.9 Hypertensive heart disease without heart failure; Z13.220 Encounter for screening for lipoid disorders

== ENCOUNTER → 2024-04-18 | Outpatient (CLI) | payer MEDICARE | LOC: M SOG 07:54 | PROVIDERS: ATTEND Orthopaedic Surgery | DX: M43.16 Spondylolisthesis, lumbar region (principal); M47.816 Spondylosis without myelopathy or radiculopathy, lumbar region; M54.50 Low back pain, unspecified ==

== ENCOUNTER → 2024-05-30 | Outpatient (CLI) | payer MEDICARE | LOC: M PLAIMG 09:01 | PROVIDERS: ATTEND Orthopaedic Surgery | DX: M48.061 Spinal stenosis, lumbar region without neurogenic claudication (principal); M81.0 Age-related osteoporosis without current pathological fracture ==

== ENCOUNTER → 2024-06-14 | Outpatient (REF) | payer MEDICARE | LOC: M LAB REF 10:07 | PROVIDERS: ATTEND Otolaryngology | DX: H66.92 Otitis media, unspecified, left ear (principal); H61.22 Impacted cerumen, left ear ==

== ENCOUNTER → 2024-07-06 | Outpatient (CLI) | payer MEDICARE | LOC: M RAD 10:43 | PROVIDERS: ATTEND Otolaryngology | DX: H66.92 Otitis media, unspecified, left ear (principal); H70.92 Unspecified mastoiditis, left ear; J01.00 Acute maxillary sinusitis, unspecified ==

== ENCOUNTER → 2024-07-27 | Outpatient (REF) | payer MEDICARE | LOC: M LAB REF 16:23 | PROVIDERS: ATTEND Otolaryngology | DX: H72.02 Central perforation of tympanic membrane, left ear (principal); H70.12 Chronic mastoiditis, left ear ==

== ENCOUNTER → 2024-08-08 | Outpatient (CLI) | payer MEDICARE | LOC: M RAD 09:02 | PROVIDERS: ATTEND Physician Assistant Medical | DX: Z12.2 Encounter for screening for malignant neoplasm of respiratory organs (principal); F17.210 Nicotine dependence, cigarettes, uncomplicated; R91.8 Other nonspecific abnormal finding of lung field; J43.9 Emphysema, unspecified; I25.10 Atherosclerotic heart disease of native coronary artery without angina pectoris; I70.0 Atherosclerosis of aorta ==

== ENCOUNTER → 2024-09-25 | Outpatient (REF) | payer MEDICARE ==
[2024-09-25 18:27] LABS: BASO # 0.1 10^3/uL (0.0-0.2); BASO % 1.4 % (0.0-1.0); EOS # 0.4 10^3/uL (0.0-0.5); EOS % 8.1 % (0.0-3.0); HEMATOCRIT 31.3 % (42.0-52.0); HEMOGLOBIN 10.3 g/dl (13.5-17.5); LYMPH # 1.3 10^3/uL (1.5-5.0); MEAN CORPUSCULAR HEMOGLOBIN 32.9 pg (27.0-33.0); MEAN CORPUSCULAR HGB CONC 32.9 g/dl (32.0-36.5); MONO # 0.6 10^3/uL (0.0-0.8); NEUTROPHILS # 2.5 10^3/uL (1.5-8.5); NEUTROPHILS % 50.1 % (36.0-66.0); PLATELET COUNT, AUTOMATED 164 10^3/uL (150-450); RED BLOOD COUNT 3.13 10^6/uL (4.30-6.10); WHITE BLOOD COUNT 4.9 10^3/uL (4.0-10.0)
[2024-09-25 18:53] LABS: ALBUMIN 2.8 G/DL (3.2-5.2); ALKALINE PHOSPHATASE 112 U/L (40-129); ALT/SGPT 27 U/L (7.0-40); AST/SGOT 36 U/L (<34); BILIRUBIN,TOTAL 0.6 MG/DL (0.3-1.2); BLOOD UREA NITROGEN 15 MG/DL (9-23); CALCIUM LEVEL 9.8 MG/DL (8.3-10.6); CARBON DIOXIDE LEVEL 25 MMOL/L (20-31); CHLORIDE LEVEL 102 MMOL/L (98-107); CREATININE FOR GFR 0.69 MG/DL (0.70-1.30); GLOMERULAR FILTRATION RATE > 60.0 (>42); GLUCOSE, FASTING 92 MG/DL (74-106); POTASSIUM SERUM 4.2 MMOL/L (3.5-5.1); PSA SCREENING 0.49 NG/ML (< 4.00); SODIUM LEVEL 133 MMOL/L (136-145); TOTAL PROTEIN 6.3 G/DL (5.7-8.2); VITAMIN B12 LEVEL 1439 PG/ML (211-911)
[2024-09-25 19:07] LABS: FOLATE 7.7 NG/ML (>5.4)
[2024-09-26 17:50] LABS: IRON (FE) 83 UG/DL (65-175); PERCENT SATURATION 24.5 % (19.7-50.0); TOTAL IRON BINDING CAPACITY 339 UG/DL (250-425)
[2024-09-26 17:53] LABS: FERRITIN 15.9 NG/ML (10.5-307.3)
== END ==
LOC: M SFHCCAPE 11:12
PROVIDERS: ATTEND Physician Assistant Medical
DX: E53.8 Deficiency of other specified B group vitamins (principal); I11.9 Hypertensive heart disease without heart failure; K76.9 Liver disease, unspecified; Z12.5 Encounter for screening for malignant neoplasm of prostate
CPT/HCPCS: 80053; 82607; 82728; 82746; 83550; 85025; G0103

== ENCOUNTER → 2024-11-06 | Outpatient (CLI) | payer MEDICARE | LOC: M RAD 14:28 | PROVIDERS: ATTEND Physician Assistant Medical | DX: R91.1 Solitary pulmonary nodule (principal) ==

== ENCOUNTER 2024-11-27 07:34 | Day surgery (SDC) | payer MEDICARE ==
[~2024-11-27] VITALS: Ht 170.2 cm; Wt 90.9 kg
[~2024-11-27 07:34] MED LIST changes: +CHLO125TA PO; +CYAN-1 PO; +ERGO500029 PO; +LORA-1041 PO; +TELM1TAB35 PO; +VITA100066 PO
[2024-11-27] MEDS: LR 1,000 ML IV SCH (08:32)
[2024-11-27] MEDS ORDERED: ONDANSETRON 4MG 2ML VIAL As Ordered ONE (08:33)
[2024-11-27] MEDS ORDERED: LIDOCAINE 2% 100MG/5ML SDV (FOR ANES.) As Ordered ONE (08:33)
[2024-11-27] MEDS ORDERED: ROCURONIUM BROMIDE 50MG/5ML VIAL As Ordered ONE (08:33)
[2024-11-27] MEDS ORDERED: propofoL 200 MG/20 ML VIAL As Ordered ONE (08:33)
[2024-11-27] MEDS ORDERED: fentaNYL 100 MCG/2 ML INJECTION As Ordered ONE (08:34)
[2024-11-27] MEDS: EPINEPHrine 1MG/ML INJ 30ML MD-VIAL As Ordered ONE (08:53)
[2024-11-27] MEDS ORDERED: SUGAMMADEX SODIUM 500 MG/5 ML VIAL (BRIDION) As Ordered ONE (09:31)
[2024-11-27] MEDS ORDERED: ACETAMINOPHEN 1000MG/100ML IV BAG As Ordered ONE (09:31)
[2024-11-27] MEDS ORDERED: PHENYLEPHRINE 10MG/ML 1ML VIAL As Ordered ONE (09:43)
[2024-11-27] MEDS: ceFAZolin 1GM VIAL As Ordered ONE (09:55)
[2024-11-27] MEDS ORDERED: KETOROLAC 60MG 2ML VIAL As Ordered ONE (10:56)
[2024-11-27] MEDS ORDERED: dexmedeTOMIDine (4MCG/ML)200MCG/50ML BTL (PRECEDEX) As Ordered ONE (11:00)
[2024-11-27] MEDS: LIDOCAINE W/EPINEPHRINE 1% 20ML VIAL As Ordered ONE (12:00)
[2024-11-27] MEDS: CIPRODEX OTIC SUSP 7.5ML As Ordered ONE (12:15)
[2024-11-27] MEDS ORDERED: fentaNYL 100 MCG/2 ML INJECTION IV PRN (12:35)
[2024-11-27] MEDS ORDERED: LR 1,000 ML IV SCH ×2 (12:35→13:50)
[2024-11-27] MEDS ORDERED: ONDANSETRON 4MG 2ML VIAL IV PRN (12:35)
[2024-11-27 13:41] VITALS: BP 121/61; TEMP 97.5; O2SAT 95
== END 2024-11-27 13:51 | disposition home or self-care (01) ==
LOC: M SDC 07:34
PROVIDERS: ATTEND Otolaryngology
DX: H71.22 Cholesteatoma of mastoid, left ear (principal); H60.42 Cholesteatoma of left external ear; H90.2 Conductive hearing loss, unspecified; R06.83 Snoring; F17.200 Nicotine dependence, unspecified, uncomplicated; Z79.899 Other long term (current) drug therapy
CPT/HCPCS: 69436; 69505; 87070; 87075; 87076; 87102; 88305; J0131; J0171; J0690; J1100; J1885; J2371; J2405; J3010

== ENCOUNTER 2025-01-17 06:44 | Day surgery (SDC) | payer MEDICARE ==
[~2025-01-17] VITALS: Ht 172.7 cm; Wt 90.3 kg
[2025-01-17] MEDS ORDERED: propofoL 200 MG/20 ML VIAL As Ordered ONE (07:00)
[2025-01-17] MEDS ORDERED: LIDOCAINE 2% 100MG/5ML SDV (FOR ANES.) As Ordered ONE (07:00)
[2025-01-17 08:00] VITALS: TEMP 98.1
[2025-01-17 08:14] VITALS: BP 126/69; O2SAT 99
== END 2025-01-17 08:16 | disposition home or self-care (01) ==
LOC: M OPP 06:44
PROVIDERS: ATTEND Surgery
DX: Z12.11 Encounter for screening for malignant neoplasm of colon (principal); R19.5 Other fecal abnormalities; D12.5 Benign neoplasm of sigmoid colon; C20 Malignant neoplasm of rectum; Z79.899 Other long term (current) drug therapy; F17.210 Nicotine dependence, cigarettes, uncomplicated

== ENCOUNTER → 2025-01-21 | Outpatient (REF) | payer MEDICARE ==
[2025-01-21 17:30] LABS: BASO # 0.1 10^3/uL (0.0-0.2); BASO % 1.3 % (0.0-1.0); EOS # 0.5 10^3/uL (0.0-0.5); EOS % 9.6 % (0.0-3.0); HEMATOCRIT 32.3 % (42.0-52.0); HEMOGLOBIN 10.3 g/dl (13.5-17.5); LYMPH # 1.6 10^3/uL (1.5-5.0); LYMPH % 29.2 % (24.0-44.0); MEAN CORPUSCULAR HEMOGLOBIN 30.7 pg (27.0-33.0); MEAN CORPUSCULAR HGB CONC 31.9 g/dl (32.0-36.5); MEAN CORPUSCULAR VOLUME 96.1 fl (80.0-96.0); MONO # 0.5 10^3/uL (0.0-0.8); NEUTROPHILS # 2.7 10^3/uL (1.5-8.5); NEUTROPHILS % 49.5 % (36.0-66.0); PLATELET COUNT, AUTOMATED 175 10^3/uL (150-450); RED BLOOD COUNT 3.36 10^6/uL (4.30-6.10); WHITE BLOOD COUNT 5.4 10^3/uL (4.0-10.0)
[2025-01-21 18:09] LABS: FOLATE 5.1 NG/ML (>5.4)
[2025-01-21 18:16] LABS: VITAMIN B12 LEVEL > 2000 PG/ML (211-911)
== END ==
LOC: M SFHCCAPE 08:52
PROVIDERS: ATTEND Physician Assistant Medical
DX: D64.9 Anemia, unspecified (principal)

== ENCOUNTER → 2025-01-24 | Outpatient (REF) | payer MEDICARE ==
[2025-01-24 19:09] LABS: BLOOD UREA NITROGEN 12 MG/DL (9-23); CREATININE FOR GFR 0.76 MG/DL (0.70-1.30); GLOMERULAR FILTRATION RATE > 90.0 (>42)
== END ==
LOC: M LABDRAWC 17:51
PROVIDERS: ATTEND Surgery
DX: D49.0 Neoplasm of unspecified behavior of digestive system (principal); R19.5 Other fecal abnormalities

== ENCOUNTER → 2025-01-29 | Outpatient (CLI) | payer MEDICARE ==
[~2025-01-29] MED LIST changes: +ISOVUE-370 76% 100ML VIAL ONE
== END ==
LOC: M PLAIMG 08:18
PROVIDERS: ATTEND Surgery
DX: D49.0 Neoplasm of unspecified behavior of digestive system (principal); R19.5 Other fecal abnormalities
CPT/HCPCS: 74177; Q9967

== ENCOUNTER → 2025-02-05 | Outpatient (CLI) | payer MEDICARE ==
[~2025-02-05] MED LIST changes: -ISOVUE-370 76% 100ML VIAL ONE
== END ==
LOC: M PLARAD 10:04
PROVIDERS: ATTEND Specialist
DX: C20 Malignant neoplasm of rectum (principal)
CPT/HCPCS: 78815; A9552

== ENCOUNTER → 2025-04-10 | Outpatient (REF) | payer MEDICARE ==
[~2025-04-10] MED LIST changes: +IRON65TA2 PO
[2025-04-10 18:45] LABS: BASO # 0.1 10^3/uL (0.0-0.2); BASO % 1.3 % (0.0-1.0); EOS # 0.7 10^3/uL (0.0-0.5); EOS % 11.1 % (0.0-3.0); LYMPH # 1.6 10^3/uL (1.5-5.0); LYMPH % 25.2 % (24.0-44.0); MONO # 0.7 10^3/uL (0.0-0.8); MONO % 10.9 % (2.0-8.0); NEUTROPHILS # 3.1 10^3/uL (1.5-8.5); NEUTROPHILS % 51.2 % (36.0-66.0); PLATELET COUNT, AUTOMATED 163 10^3/uL (150-450)
[2025-04-10 18:46] LABS: ALT/SGPT 22 U/L (7.0-40); AST/SGOT 39 U/L (<34); CALCIUM LEVEL 9.3 MG/DL (8.3-10.6); CARBON DIOXIDE LEVEL 23 MMOL/L (20-31); CHLORIDE LEVEL 101 MMOL/L (98-107); CREATININE FOR GFR 0.89 MG/DL (0.70-1.30); GLOMERULAR FILTRATION RATE > 90.0 (>42); IRON (FE) 50 UG/DL (65-175); PERCENT SATURATION 14.0 % (19.7-50.0); POTASSIUM SERUM 4.2 MMOL/L (3.5-5.1); SODIUM LEVEL 135 MMOL/L (136-145)
[2025-04-10 18:51] LABS: VITAMIN B12 LEVEL > 2000 PG/ML (211-911)
== END ==
LOC: M LABDRWCV 17:21
PROVIDERS: ATTEND Specialist
DX: C20 Malignant neoplasm of rectum (principal)

== ENCOUNTER → 2025-04-11 | Outpatient (REF) | payer MEDICARE ==
[~2025-04-11] MED LIST changes: -IRON65TA2 PO
== END ==
LOC: M SFHCDERM 08:34
PROVIDERS: ATTEND Physician Assistant
DX: C44.519 Basal cell carcinoma of skin of other part of trunk (principal); D22.5 Melanocytic nevi of trunk

== ENCOUNTER → 2025-05-06 | Outpatient (CLI) | payer MEDICARE ==
[~2025-05-06] MED LIST changes: +IRON65TA2 PO
== END ==
LOC: M ONCR 08:33
PROVIDERS: ATTEND General Practice
DX: C20 Malignant neoplasm of rectum (principal); Z98.890 Other specified postprocedural states; Z83.3 Family history of diabetes mellitus; Z82.49 Family history of ischemic heart disease and other diseases of the circulatory system; F17.218 Nicotine dependence, cigarettes, with other nicotine-induced disorders; Z72.89 Other problems related to lifestyle; Z79.1 Long term (current) use of non-steroidal anti-inflammatories (NSAID); Z79.899 Other long term (current) drug therapy

== ENCOUNTER → 2025-06-05 | Outpatient (CLI) | payer MEDICARE ==
[~2025-06-05] MED LIST changes: +PROHANCE 279.3MG/ML 15ML VIAL As Ordered ONE; +PROHANCE 279.3MG/ML 5ML VIAL As Ordered ONE
== END ==
LOC: M RAD 08:20
PROVIDERS: ATTEND General Practice
DX: C20 Malignant neoplasm of rectum (principal); K40.20 Bilateral inguinal hernia, without obstruction or gangrene, not specified as recurrent
CPT/HCPCS: 72197; A9576

== ENCOUNTER → 2025-06-27 | Outpatient (CLI) | payer MEDICARE ==
[~2025-06-27] VITALS: Ht 170.2 cm; Wt 88.6 kg
[~2025-06-27] MED LIST changes: -PROHANCE 279.3MG/ML 15ML VIAL As Ordered ONE; -PROHANCE 279.3MG/ML 5ML VIAL As Ordered ONE
[2025-06-27 09:45] VITALS: TEMP 97.2
[2025-06-27] MEDS: ceFAZolin SODIUM 2 GM in DEXTROSE 5% (D5W) ADV/MINI-BAG 50 ML IV ONE (10:45)
[2025-06-27] MEDS: NS (Normal Saline) 0.9% 1,000 ML IV SCH (10:45)
[2025-06-27] MEDS: MIDAZOLAM INJ 2 MG/2 ML VIAL IV PRN (11:22)
[2025-06-27] MEDS: LIDOCAINE 1% MDV 20 ML VIAL SC SCH (11:29)
[2025-06-27 12:10] VITALS: BP 138/68; O2SAT 98
== END ==
LOC: M IRPRO 09:26
PROVIDERS: ATTEND Internal Medicine Hematology & Oncology
DX: C20 Malignant neoplasm of rectum (principal)
CPT/HCPCS: 36590; 99152; J0688; J2250; J3010